=== PATIENT | male | born 1985 | race Caucasian/White ===

== ENCOUNTER 2021-09-19 11:47 | Emergency (ER) | payer MEDICAID, SELFPAY ==
[~2021-09-19] VITALS: Ht 175.3 cm; Wt 79.4 kg
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
[2021-09-19 12:19] VITALS: BP_SYST 112
--- NOTE | 2021-09-19 15:35 | NUR ---
Dr Ibrahim evaluating patient at bedside
--- NOTE | 2021-09-19 16:20 | NUR ---
Pt A&Ox4, VSS, respirations even and unlabored
--- NOTE | 2021-09-19 18:10 | NUR ---
Pt eloped from ER
== END 2021-09-19 18:10 | disposition left against medical advice (07) ==
LOC: SED 11:47
DX: R60.9 Edema, unspecified (principal); T78.3XXA Angioneurotic edema, initial encounter
CPT/HCPCS: 99283